=== PATIENT | female | born 1970 | race Caucasian/White ===

== ENCOUNTER → 2016-06-27 | Outpatient (REF) | payer OTHER ==
[~2016-06-27] MED LIST: FLEXERIL OR; IBUP400T OR; NEUR600T OR; VICO5TAB OR
[2016-06-27 18:04] LABS: MEAN CORPUSCULAR HEMOGLOBIN 31.2 pg (27.0-33.0); MEAN CORPUSCULAR HGB CONC 32.4 g/dl (32.0-36.5); MEAN CORPUSCULAR VOLUME 96.2 fl (80.0-96.0); RED CELL DISTRIBUTION WIDTH 12.8 % (11.5-14.5); WHITE BLOOD COUNT 6.2 K/mm3 (4.0-10.0)
[2016-06-27 18:12] LABS: ALBUMIN 3.6 GM/DL (3.2-5.2); ALBUMIN/GLOBULIN RATIO 1.06 (1.00-1.93); ALKALINE PHOSPHATASE 91 U/L (45-117); ALT/SGPT 32 U/L (12-78); ANION GAP 9 MEQ/L (8-16); AST/SGOT 19 U/L (15-37); BILIRUBIN,TOTAL 0.3 MG/DL (0.2-1.0); BLOOD UREA NITROGEN 12 MG/DL (7-18); CALCIUM LEVEL 8.5 MG/DL (8.5-10.1); CARBON DIOXIDE LEVEL 29 MEQ/L (21-32); CHLORIDE LEVEL 105 MEQ/L (98-107); CHOLESTEROL LEVEL 256 MG/DL (<200); CREATININE FOR GFR 0.74 MG/DL (0.55-1.02); GLOMERULAR FILTRATION RATE > 60.0 (>58); GLUCOSE, FASTING 97 MG/DL (70-105); POTASSIUM SERUM 4.4 MEQ/L (3.5-5.1); SODIUM LEVEL 143 MEQ/L (136-145); TRIGLYCERIDES LEVEL 197 MG/DL (<150)
== END ==
LOC: M SFHCLERA 11:38
PROVIDERS: ATTEND Physician Assistant
DX: R53.83 Other fatigue (principal); E78.2 Mixed hyperlipidemia

== ENCOUNTER → 2017-05-21 | Outpatient (REF) | payer OTHER | LOC: M SFHCWAGY 13:41 | DX: Z12.72 Encounter for screening for malignant neoplasm of vagina (principal) ==

== ENCOUNTER → 2017-05-21 | Outpatient (CLI) | payer OTHER | LOC: M WHC 12:41 | DX: Z12.31 Encounter for screening mammogram for malignant neoplasm of breast (principal) | CPT/HCPCS: 77067 ==

== ENCOUNTER 2017-07-04 19:46 | Observation (INO) | payer OTHER ==
[2017-07-04 20:43] LABS: BASO % 0.7 % (0.0-1.0); EOS # 0.1 10^3/uL (0.0-0.50); EOS % 1.5 % (0.0-3.0); HEMATOCRIT 33.2 % (36.0-47.0); HEMOGLOBIN 11.1 g/dl (12.0-16.0); IMMATURE GRANULOCYTE % 0.2 % (0-3.0); LYMPH # 1.7 10^3/uL (1.5-4.5); LYMPH % 27.7 % (24.0-44.0); MEAN CORPUSCULAR HEMOGLOBIN 31.1 pg (27.0-33.0); MEAN CORPUSCULAR HGB CONC 33.4 g/dl (32.0-36.5); MONO # 0.3 10^3/uL (0.0-0.8); MONO % 5.2 % (0.0-5.0); NEUTROPHILS % 64.7 % (36.0-66.0); PLATELET COUNT, AUTOMATED 196 10^3/uL (150-450); RED BLOOD COUNT 3.57 10^6/uL (4.00-5.40); RED CELL DISTRIBUTION WIDTH 12.2 % (11.5-14.5); WHITE BLOOD COUNT 6.1 10^3/uL (4.0-10.0)
[2017-07-04 20:46] LABS: BEDSIDE GLUCOSE 87 MG/DL (70-105)
[2017-07-04 20:59] LABS: ACETAMINOPHEN LEVEL < 2.0 UG/ML (10.0-30.0); ALBUMIN 3.5 GM/DL (3.2-5.2); ALBUMIN/GLOBULIN RATIO 1.17 (1.00-1.93); ALKALINE PHOSPHATASE 79 U/L (45-117); ALT/SGPT 17 U/L (12-78); ANION GAP 10 MEQ/L (8-16); AST/SGOT 15 U/L (7-37); BILIRUBIN,DIRECT < 0.1 MG/DL (0.0-0.2); BLOOD UREA NITROGEN 14 MG/DL (7-18); CALCIUM LEVEL 8.3 MG/DL (8.5-10.1); CARBON DIOXIDE LEVEL 25 MEQ/L (21-32); CHLORIDE LEVEL 108 MEQ/L (98-107); CPK CREATINE PHOSPHOKINASE 95 U/L (26-192); CREATININE FOR GFR 0.69 MG/DL (0.55-1.30); ETHYL ALCOHOL (ETHANOL) < 0.003 % (0.000-0.010); GLOMERULAR FILTRATION RATE > 60.0 (>58); GLUCOSE, FASTING 113 MG/DL (70-100); POTASSIUM SERUM 3.7 MEQ/L (3.5-5.1); SALICYLATE LEVEL < 1.7 MG/DL (5.0-30.0); SODIUM LEVEL 143 MEQ/L (136-145); TOTAL PROTEIN 6.5 GM/DL (6.4-8.2); TROPONIN I < 0.02 NG/ML (< 0.10)
[2017-07-04 21:11] LABS: BILIRUBIN,TOTAL 0.2 MG/DL (0.2-1.0); MB/CK RELATIVE INDEX 1.05 (< OR =4)
[2017-07-04] MEDS: METOCLOPRAMIDE INJ 10MG/2ML VIAL (J2765) IV (21:15)
[2017-07-04] MEDS: KETOROLAC 30 MG/ML VIAL (J1885) IV (21:15)
[2017-07-04] MEDS: NS 1,000 ML IV ×2 (21:15→23:16)
[2017-07-04] MEDS: diphenhydrAMINE INJ 50MG/ML VIAL (J1200) IV (21:15)
[2017-07-04 22:24] LABS: BEDSIDE GLUCOSE 105 MG/DL (70-105)
[2017-07-05 00:04] LABS: MAGNESIUM LEVEL 1.9 MG/DL (1.8-2.4); PHOSPHORUS LEVEL 1.4 MG/DL (2.5-4.9)
[2017-07-05] MEDS: NS 1,000 ML IV (01:29)
[2017-07-05] MEDS ORDERED: ONDANSETRON 4MG/2ML VIAL (J2405) IV (01:30)
[2017-07-05] MEDS: HEPARIN SOD (PORCINE) 5000 UNITS/ML VIAL SC (06:00)
[2017-07-05 06:21] LABS: BEDSIDE GLUCOSE 102 MG/DL (70-105)
[2017-07-05 06:42] LABS: C REACTIVE PROTEIN QUANTITATIV < 0.30 MG/DL (0.00-0.30)
[2017-07-05 06:44] LABS: ERYTHROCYTE SEDIMENTATION RATE 15 mm/hr (0-20)
[2017-07-05 09:44] LABS: BASO % 0.3 % (0.0-1.0); EOS # 0.1 10^3/uL (0.0-0.50); HEMATOCRIT 34.8 % (36.0-47.0); HEMOGLOBIN 11.7 g/dl (12.0-16.0); IMMATURE GRANULOCYTE % 0.2 % (0-3.0); LYMPH # 1.8 10^3/uL (1.5-4.5); LYMPH % 29.2 % (24.0-44.0); MEAN CORPUSCULAR HEMOGLOBIN 31.5 pg (27.0-33.0); MEAN CORPUSCULAR HGB CONC 33.6 g/dl (32.0-36.5); MEAN CORPUSCULAR VOLUME 93.8 fl (80.0-96.0); MONO # 0.4 10^3/uL (0.0-0.8); MONO % 6.5 % (0.0-5.0); NEUTROPHILS # 3.8 10^3/uL (1.8-7.7); NEUTROPHILS % 62.8 % (36.0-66.0); PLATELET COUNT, AUTOMATED 189 10^3/uL (150-450); RED BLOOD COUNT 3.71 10^6/uL (4.00-5.40); RED CELL DISTRIBUTION WIDTH 12.5 % (11.5-14.5)
[2017-07-05 09:47] LABS: ALBUMIN 3.2 GM/DL (3.2-5.2); ALBUMIN/GLOBULIN RATIO 1.03 (1.00-1.93); ALKALINE PHOSPHATASE 78 U/L (45-117); ALT/SGPT 18 U/L (12-78); ANION GAP 7 MEQ/L (8-16); AST/SGOT 13 U/L (7-37); BILIRUBIN,TOTAL 0.3 MG/DL (0.2-1.0); BLOOD UREA NITROGEN 9 MG/DL (7-18); CALCIUM LEVEL 8.3 MG/DL (8.5-10.1); CARBON DIOXIDE LEVEL 28 MEQ/L (21-32); CHLORIDE LEVEL 109 MEQ/L (98-107); CREATININE FOR GFR 0.65 MG/DL (0.55-1.30); GLOMERULAR FILTRATION RATE > 60.0 (>58); GLUCOSE, FASTING 96 MG/DL (70-100); MAGNESIUM LEVEL 1.9 MG/DL (1.8-2.4); POTASSIUM SERUM 3.8 MEQ/L (3.5-5.1); SODIUM LEVEL 144 MEQ/L (136-145); TOTAL PROTEIN 6.3 GM/DL (6.4-8.2)
== END 2017-07-05 13:00 | disposition home or self-care (01) ==
LOC: M ED INP 19:47 → M ED 19:46
DX: I95.1 Orthostatic hypotension (principal); R00.1 Bradycardia, unspecified; R42 Dizziness and giddiness; M79.7 Fibromyalgia; F32.9 Major depressive disorder, single episode, unspecified; J30.9 Allergic rhinitis, unspecified; G43.909 Migraine, unspecified, not intractable, without status migrainosus; R68.82 Decreased libido; N89.8 Other specified noninflammatory disorders of vagina; Z98.84 Bariatric surgery status; Z87.891 Personal history of nicotine dependence
CPT/HCPCS: J1200

== ENCOUNTER → 2017-07-19 | Outpatient (CLI) | payer OTHER ==
[2017-07-19 12:16] LABS: EOS # 0.1 10^3/uL (0.0-0.50); EOS % 3.5 % (0.0-3.0); HEMATOCRIT 37.4 % (36.0-47.0); HEMOGLOBIN 12.5 g/dl (12.0-15.5); LYMPH # 1.5 10^3/uL (1.5-4.5); LYMPH % 38.2 % (24.0-44.0); MEAN CORPUSCULAR HEMOGLOBIN 31.3 pg (27.0-33.0); MEAN CORPUSCULAR HGB CONC 33.4 g/dl (32.0-36.5); MEAN CORPUSCULAR VOLUME 93.7 fl (80.0-96.0); MONO # 0.2 10^3/uL (0.0-0.8); NEUTROPHILS % 51.3 % (36.0-66.0); PLATELET COUNT, AUTOMATED 229 10^3/uL (150-450); RED BLOOD COUNT 3.99 10^6/uL (4.00-5.40); RED CELL DISTRIBUTION WIDTH 12.5 % (11.5-14.5)
[2017-07-19 12:20] LABS: HEMATOCRIT 37.4 % (36.0-47.0)
[2017-07-19 12:33] LABS: TOTAL 25(OH) VITAMIN D 37.3 NG/ML (30.0-100.0)
[2017-07-19 12:34] LABS: VITAMIN B12 LEVEL > 2000 PG/ML (247-911)
[2017-07-19 12:37] LABS: ALBUMIN 3.9 GM/DL (3.2-5.2); ALBUMIN/GLOBULIN RATIO 1.18 (1.00-1.93); ALKALINE PHOSPHATASE 82 U/L (45-117); ALT/SGPT 27 U/L (12-78); ANION GAP 5 MEQ/L (8-16); AST/SGOT 20 U/L (7-37); BILIRUBIN,TOTAL 0.6 MG/DL (0.2-1.0); BLOOD UREA NITROGEN 14 MG/DL (7-18); CALCIUM LEVEL 9.3 MG/DL (8.5-10.1); CARBON DIOXIDE LEVEL 32 MEQ/L (21-32); CHLORIDE LEVEL 106 MEQ/L (98-107); FERRITIN 99 NG/ML (8-252); GLOMERULAR FILTRATION RATE > 60.0 (>58); GLUCOSE, FASTING 97 MG/DL (70-100); IRON (FE) 119 UG/DL (50-170); PHOSPHORUS LEVEL 3.7 MG/DL (2.5-4.9); POTASSIUM SERUM 3.8 MEQ/L (3.5-5.1); SODIUM LEVEL 143 MEQ/L (136-145); TOTAL IRON BINDING CAPACITY 322 UG/DL (250-450); TOTAL PROTEIN 7.2 GM/DL (6.4-8.2)
[2017-07-19 13:22] LABS: ESTIMATED AVERAGE GLUCOSE 114 MG/DL (60-110); HEMOGLOBIN A1c 5.6 %
[2017-07-19 14:15] LABS: PRETREATED FOLATE FOR RBCFOL 16.7 NG/ML; RBC FOLATE 937.7 NG/ML (280-791)
== END ==
LOC: M LRY 09:23
DX: K91.2 Postsurgical malabsorption, not elsewhere classified (principal); E55.9 Vitamin D deficiency, unspecified; Z98.84 Bariatric surgery status
CPT/HCPCS: 83550

== ENCOUNTER → 2018-11-06 | Outpatient (REF) | payer BC, OTHER ==
[~2018-11-06] MED LIST changes: +AMIT25TA PO; +CALC1TAB72 PO; +CETI10TA PO; +CYAN100049 PO; +LYRI200C PO; +SING10TA32 PO; +VITMTA PO; +ZOFR4TAB14 PO; +ZYRT10CA PO
== END ==
LOC: M SFHCPLAZ 10:08
PROVIDERS: ATTEND Dermatology
DX: D48.2 Neoplasm of uncertain behavior of peripheral nerves and autonomic nervous system (principal)

== ENCOUNTER 2019-10-10 08:31 | Emergency (ER) | payer BC, OTHER, SELFPAY ==
[~2019-10-10] VITALS: Ht 160 cm; Wt 77.7 kg
[2019-10-10] MEDS ORDERED: BACL10TA2 PO (08:38)
[2019-10-10] MEDS ORDERED: LIDOCAINE 2% MDV 20ML VIAL SC ONE (09:00)
[2019-10-10] MEDS ORDERED: BOOSTRIX/ADACEL VACCINE (DIPHTH/PERTUSS/ACELL/TETANUS) 0.5ML SYR IM ONE (09:30)
[2019-10-10 09:47] VITALS: BP 122/67
== END 2019-10-10 09:50 | disposition home or self-care (01) ==
LOC: M ED 08:31
DX: S61.221A Laceration with foreign body of left index finger without damage to nail, initial encounter (principal); Z88.0 Allergy status to penicillin; W45.8XXA Other foreign body or object entering through skin, initial encounter; Y93.89 Activity, other specified; Y99.8 Other external cause status; Y92.9 Unspecified place or not applicable; Z98.84 Bariatric surgery status; Z98.1 Arthrodesis status

== ENCOUNTER → 2021-01-18 | Outpatient (REF) | payer OTHER ==
[~2021-01-18] MED LIST changes: -AMIT25TA PO; +AMIT25TA17 PO; +BACL10TA2 PO; +MACR100C43 PO
== END ==
LOC: M SFHCLERA 15:42
PROVIDERS: ATTEND Nurse Practitioner Family
DX: J02.9 Acute pharyngitis, unspecified (principal)

== ENCOUNTER → 2021-05-04 | Outpatient (REF) | payer OTHER | LOC: M SFHCPLAZ 17:14 | PROVIDERS: ATTEND Physician Assistant | DX: J02.9 Acute pharyngitis, unspecified (principal); Z20.822 Contact with and (suspected) exposure to COVID-19 ==

== ENCOUNTER → 2023-03-13 | Outpatient (CLI) | payer BC ==
[~2023-03-13] MED LIST changes: -AMIT25TA17 PO; +AMIT25TA19 PO; +MONT-5 PO; -SING10TA32 PO
[2023-03-13 08:05] LABS: BASO % 1.4 % (0.0-1.0); EOS # 0.1 10^3/uL (0.0-0.5); EOS % 2.9 % (0.0-3.0); HEMATOCRIT 38.5 % (36.0-47.0); HEMOGLOBIN 12.8 g/dl (12.0-15.5); LYMPH % 35.9 % (24.0-44.0); MEAN CORPUSCULAR HEMOGLOBIN 32.2 pg (27.0-33.0); MEAN CORPUSCULAR HGB CONC 33.2 g/dl (32.0-36.5); MEAN CORPUSCULAR VOLUME 96.7 fl (80.0-96.0); MONO # 0.2 10^3/uL (0.0-0.8); MONO % 6.5 % (2.0-8.0); NEUTROPHILS # 1.5 10^3/uL (1.5-8.5); NEUTROPHILS % 52.9 % (36.0-66.0); PLATELET COUNT, AUTOMATED 226 10^3/uL (150-450); RED BLOOD COUNT 3.98 10^6/uL (4.00-5.40); WHITE BLOOD COUNT 2.8 10^3/uL (4.0-10.0)
[2023-03-13 08:35] LABS: HEMOGLOBIN A1c 5.2 % (4.0-6.0)
[2023-03-13 08:38] LABS: IRON (FE) 79 UG/DL (50-170)
[2023-03-13 08:39] LABS: PERCENT SATURATION 22.1 % (13.2-45.0); TOTAL IRON BINDING CAPACITY 357 UG/DL (250-425)
[2023-03-13 08:42] LABS: ALBUMIN 3.7 G/DL (3.2-5.2); ALKALINE PHOSPHATASE 93 U/L (46-116); ALT/SGPT 17 U/L (7.0-40); AST/SGOT 17 U/L (<34); BILIRUBIN,TOTAL 0.4 MG/DL (0.3-1.2); BLOOD UREA NITROGEN 12 MG/DL (9-23); CALCIUM LEVEL 8.9 MG/DL (8.5-10.1); CARBON DIOXIDE LEVEL 31 MMOL/L (20-31); CHLORIDE LEVEL 105 MMOL/L (98-107); CHOLESTEROL LEVEL 290 MG/DL (<200); CHOLESTEROL RISK RATIO 2.67 (<5); CREATININE FOR GFR 0.71 MG/DL (0.55-1.30); FERRITIN 24.2 NG/ML (7.3-270.7); FOLATE > 24.0 NG/ML (>5.4); FREE T4 1.07 NG/DL (0.89-1.76); GLOMERULAR FILTRATION RATE > 60.0 (>51); GLUCOSE, FASTING 91 MG/DL (60-100); HDL CHOLESTEROL 108.6 MG/DL (>40); LDL CHOLESTEROL 166.2 MG/DL (<100); NON-HDL-C 181.4 MG/DL; POTASSIUM SERUM 4.1 MMOL/L (3.5-5.1); SODIUM LEVEL 140 MMOL/L (136-145); THYROID STIMULATING HORMONE 1.479 uIU/ML (0.55-4.78); TOTAL PROTEIN 6.7 G/DL (5.7-8.2); TRIGLYCERIDES LEVEL 76 MG/DL (<150)
[2023-03-13 08:50] LABS: VITAMIN B12 LEVEL > 2000 PG/ML (211-911)
== END ==
LOC: M LAB 07:24
PROVIDERS: ATTEND Physician Assistant
DX: R22.1 Localized swelling, mass and lump, neck (principal); Z13.6 Encounter for screening for cardiovascular disorders; Z98.84 Bariatric surgery status

== ENCOUNTER → 2023-03-18 | Outpatient (CLI) | payer BC ==
[~2023-03-18] MED LIST changes: +ISOVUE-370 76% 100ML VIAL As Ordered ONE
== END ==
LOC: M RAD 07:47
PROVIDERS: ATTEND Physician Assistant
DX: R22.1 Localized swelling, mass and lump, neck (principal)
CPT/HCPCS: 70491; Q9967

== ENCOUNTER → 2023-05-03 | Outpatient (CLI) | payer BC ==
[~2023-05-03] MED LIST changes: -ISOVUE-370 76% 100ML VIAL As Ordered ONE
[2023-05-03 13:26] LABS: BASO % 1.4 % (0.0-1.0); EOS # 0.1 10^3/uL (0.0-0.5); EOS % 3.1 % (0.0-3.0); HEMATOCRIT 38.2 % (36.0-47.0); HEMOGLOBIN 12.2 g/dl (12.0-15.5); LYMPH # 1.2 10^3/uL (1.5-5.0); LYMPH % 40.8 % (24.0-44.0); MEAN CORPUSCULAR HEMOGLOBIN 31.7 pg (27.0-33.0); MEAN CORPUSCULAR HGB CONC 31.9 g/dl (32.0-36.5); MEAN CORPUSCULAR VOLUME 99.2 fl (80.0-96.0); MONO # 0.2 10^3/uL (0.0-0.8); MONO % 7.5 % (2.0-8.0); NEUTROPHILS # 1.4 10^3/uL (1.5-8.5); NEUTROPHILS % 47.2 % (36.0-66.0); PLATELET COUNT, AUTOMATED 214 10^3/uL (150-450); RED BLOOD COUNT 3.85 10^6/uL (4.00-5.40); WHITE BLOOD COUNT 2.9 10^3/uL (4.0-10.0)
[2023-05-03 13:44] LABS: ERYTHROCYTE SEDIMENTATION RATE 8 mm/hr (0-30)
[2023-05-03 13:49] LABS: URIC ACID 5.2 MG/DL (3.1-7.8)
[2023-05-03 13:51] LABS: C REACTIVE PROTEIN QUANTITATIV < 0.40 MG/DL (<1.0)
[2023-05-03 13:54] LABS: RHEUMATOID FACTOR QUANT < 3.5 IU/ML (<14)
[2023-05-03 14:19] LABS: HIV 1&2 SCREEN NEGATIVE (NEGATIVE)
[2023-05-03 14:27] LABS: HEPATITIS C VIRUS ABY INDEX 0.02 INDEX (<0.8)
[2023-05-03 14:28] LABS: HEPATITIS B CORE ANTIBODY IGM NEGATIVE (NEGATIVE)
[2023-05-03 15:18] LABS: APPEARANCE, URINE MANUAL HAZY (CLEAR); BILIRUBIN, URINE MANUAL NEGATIVE (NEGATIVE); COLOR, URINE MANUAL DK YELLOW (YELLOW); GLUCOSE, URINE (UA) MANUAL NEGATIVE (NEGATIVE); KETONE, URINE MANUAL NEGATIVE (NEGATIVE); LEUKOCYTE ESTERASE, URINE MAN POSITIVE (NEGATIVE); NITRITE, URINE MANUAL NEGATIVE (NEGATIVE); PROTEIN, URINE MANUAL 1+ mg/dL (NEGATIVE); UROBILINOGEN, URINE MANUAL NORMAL (NORMAL)
[2023-05-03 15:19] LABS: BLOOD URINE MANUAL POSITIVE (NEGATIVE)
[2023-05-03 15:31] LABS: CALCIUM OXALATE CRYSTALS,URINE MOD AMOUNT /hpf
[2023-05-03 15:32] LABS: AMORPHOUS SEDIMENT, URINE SMALL AMOUNT (NEGATIVE); BACTERIA, URINE SMALL AMOUNT
[2023-05-03 15:33] LABS: HYALINE CAST, URINE NONE SEEN /lpf (0-1); SQUAMOUS EPITHELIAL CELL URINE MOD AMOUNT /hpf (SMALL AMT)
== END ==
LOC: M WUC 09:12
PROVIDERS: ATTEND Physician Assistant
DX: M47.816 Spondylosis without myelopathy or radiculopathy, lumbar region (principal); M54.41 Lumbago with sciatica, right side; M25.551 Pain in right hip; D72.810 Lymphocytopenia

== ENCOUNTER 2023-07-08 07:48 | Emergency (ER) | payer BC ==
[~2023-07-08] VITALS: Ht 160 cm; Wt 81.9 kg
[2023-07-08] MEDS ORDERED: PANT40TA29 PO (08:10)
[2023-07-08] MEDS ORDERED: LEXA1TAB PO (08:10)
[2023-07-08] MEDS ORDERED: TIZA10TA PO (08:10)
[2023-07-08] MEDS ORDERED: SUMA100T2 PO (08:10)
[2023-07-08] MEDS: dexAMETHasone 20MG/5ML VIAL IV ONE (11:16)
[2023-07-08] MEDS: KETOROLAC 30 MG/ML 1ML VIAL IV ONE (11:17)
[2023-07-08] MEDS: NS 1,000 ML IV ONE (11:17)
[2023-07-08] MEDS: METOCLOPRAMIDE INJ 10MG/2ML VIAL IV ONE (11:17)
[2023-07-08] MEDS ORDERED: MULT-40 PO (11:54)
[2023-07-08 11:55] LABS: BASO # 0.1 10^3/uL (0.0-0.2); BASO % 1.3 % (0.0-1.0); EOS # 0.1 10^3/uL (0.0-0.5); EOS % 2.1 % (0.0-3.0); LYMPH # 1.5 10^3/uL (1.5-5.0); LYMPH % 37.6 % (24.0-44.0); MEAN CORPUSCULAR HEMOGLOBIN 30.9 pg (27.0-33.0); MEAN CORPUSCULAR HGB CONC 32.4 g/dl (32.0-36.5); MEAN CORPUSCULAR VOLUME 95.4 fl (80.0-96.0); MONO # 0.3 10^3/uL (0.0-0.8); MONO % 8.2 % (2.0-8.0); NEUTROPHILS % 50.5 % (36.0-66.0); PLATELET COUNT, AUTOMATED 204 10^3/uL (150-450); RED BLOOD COUNT 3.88 10^6/uL (4.00-5.40); WHITE BLOOD COUNT 3.9 10^3/uL (4.0-10.0)
[2023-07-08] MEDS ORDERED: HOME MED LIST COMPLETE! XX SCH (11:55)
[2023-07-08 12:13] LABS: BLOOD UREA NITROGEN 11 MG/DL (9-23); CALCIUM LEVEL 8.8 MG/DL (8.5-10.1); CARBON DIOXIDE LEVEL 31 MMOL/L (20-31); CHLORIDE LEVEL 105 MMOL/L (98-107); CREATININE FOR GFR 0.67 MG/DL (0.55-1.30); GLOMERULAR FILTRATION RATE > 60.0 (>51); GLUCOSE, FASTING 89 MG/DL (60-100); SODIUM LEVEL 141 MMOL/L (136-145)
[2023-07-08 12:19] LABS: ERYTHROCYTE SEDIMENTATION RATE 9 mm/hr (0-30)
[2023-07-08 13:08] VITALS: BP 141/82; TEMP 97.8; O2SAT 100
== END 2023-07-08 13:14 | disposition home or self-care (01) ==
LOC: M ED 07:48
DX: R51.9 Headache, unspecified (principal); D23.4 Other benign neoplasm of skin of scalp and neck; K21.9 Gastro-esophageal reflux disease without esophagitis; Z88.0 Allergy status to penicillin; Z88.8 Allergy status to other drugs, medicaments and biological substances; Z79.810 Long term (current) use of selective estrogen receptor modulators (SERMs); Z79.899 Other long term (current) drug therapy
CPT/HCPCS: 70450; 80048; 83735; 85025; 85652; 96361; 96374; 96375; 99284; J1100; J1885; J2765

== ENCOUNTER 2023-07-12 11:54 | Emergency (ER) | payer BC ==
[~2023-07-12] VITALS: Ht 160 cm; Wt 72.7 kg
[~2023-07-12 11:54] MED LIST changes: +LEXA1TAB PO; +MULT-40 PO; +PANT40TA29 PO; +SUMA100T2 PO; +TIZA10TA PO
[2023-07-12 12:39] LABS: BASO # 0.1 10^3/uL (0.0-0.2); BASO % 1.3 % (0.0-1.0); EOS # 0.1 10^3/uL (0.0-0.5); EOS % 1.8 % (0.0-3.0); HEMATOCRIT 38.5 % (36.0-47.0); HEMOGLOBIN 12.5 g/dl (12.0-15.5); LYMPH # 1.6 10^3/uL (1.5-5.0); LYMPH % 41.4 % (24.0-44.0); MEAN CORPUSCULAR HGB CONC 32.5 g/dl (32.0-36.5); MEAN CORPUSCULAR VOLUME 95.5 fl (80.0-96.0); MONO # 0.3 10^3/uL (0.0-0.8); MONO % 7.3 % (2.0-8.0); NEUTROPHILS # 1.9 10^3/uL (1.5-8.5); NEUTROPHILS % 48.2 % (36.0-66.0); PLATELET COUNT, AUTOMATED 219 10^3/uL (150-450); RED BLOOD COUNT 4.03 10^6/uL (4.00-5.40)
[2023-07-12 12:41] VITALS: BP 122/73
[2023-07-12] MEDS: NITROGLYCERIN 0.4MG SUBL TABLET SL PRN (12:41)
[2023-07-12] MEDS: ASPIRIN 81MG CHEW TABLET PO ONE (12:41)
[2023-07-12 12:52] LABS: INR 0.99; PARTIAL THROMBOPLASTIN TIME 26.6 SECONDS (24.8-34.2); PROTHROMBIN TIME 12.8 SECONDS (12.5-14.5)
[2023-07-12 13:25] LABS: BLOOD UREA NITROGEN 11 MG/DL (9-23); CALCIUM LEVEL 8.4 MG/DL (8.5-10.1); CARBON DIOXIDE LEVEL 29 MMOL/L (20-31); CHLORIDE LEVEL 106 MMOL/L (98-107); CK-MB VALUE MASS < 1.0 NG/ML (<3.6); CPK CREATINE PHOSPHOKINASE 102 U/L (34-145); CREATININE FOR GFR 0.72 MG/DL (0.55-1.30); GLOMERULAR FILTRATION RATE > 60.0 (>51); GLUCOSE, FASTING 75 MG/DL (60-100); MB/CK RELATIVE INDEX 0.98 (< OR =4); POTASSIUM SERUM 3.5 MMOL/L (3.5-5.1); SODIUM LEVEL 139 MMOL/L (136-145)
[2023-07-12 13:45] LABS: D-DIMER QUANT 0.31 ug/mL (<0.5)
[2023-07-12 14:06] LABS: CK-MB VALUE MASS < 1.0 NG/ML (<3.6)
[2023-07-12 14:08] LABS: CPK CREATINE PHOSPHOKINASE 100 U/L (34-145)
[2023-07-12 15:00] VITALS: BP 117/74; O2SAT 98
[2023-07-12 15:12] VITALS: TEMP 97.8
== END 2023-07-12 15:08 | disposition home or self-care (01) ==
LOC: M ED 11:54
DX: R07.9 Chest pain, unspecified (principal); K21.9 Gastro-esophageal reflux disease without esophagitis; F41.9 Anxiety disorder, unspecified; F32.9 Major depressive disorder, single episode, unspecified; Z88.8 Allergy status to other drugs, medicaments and biological substances; Z88.0 Allergy status to penicillin; Z79.810 Long term (current) use of selective estrogen receptor modulators (SERMs); Z79.899 Other long term (current) drug therapy

== ENCOUNTER 2024-03-05 10:59 | Emergency (ER) | payer BC ==
[~2024-03-05] VITALS: Ht 170.2 cm; Wt 78.9 kg
[2024-03-05 11:49] LABS: HEMOGLOBIN 12.6 g/dl (12.0-15.5); MEAN CORPUSCULAR HEMOGLOBIN 31.8 pg (27.0-33.0); MEAN CORPUSCULAR HGB CONC 33.2 g/dl (32.0-36.5); PLATELET COUNT, AUTOMATED 163 10^3/uL (150-450); RED BLOOD COUNT 3.96 10^6/uL (4.00-5.40); WHITE BLOOD COUNT 2.6 10^3/uL (4.0-10.0)
[2024-03-05 12:11] LABS: BLOOD UREA NITROGEN 9 MG/DL (9-23); CALCIUM LEVEL 8.8 MG/DL (8.5-10.1); CARBON DIOXIDE LEVEL 28 MMOL/L (20-31); CHLORIDE LEVEL 109 MMOL/L (98-107); CREATININE FOR GFR 0.69 MG/DL (0.55-1.30); GLOMERULAR FILTRATION RATE > 60.0 (>51); GLUCOSE, FASTING 85 MG/DL (60-100); POTASSIUM SERUM 3.3 MMOL/L (3.5-5.1); SODIUM LEVEL 145 MMOL/L (136-145)
[2024-03-05 12:29] LABS: BASO % 0.4 % (0.0-1.0); EOS % 1.5 % (0.0-3.0); LYMPH % 37.2 % (24.0-44.0); MONO # 0.3 10^3/uL (0.0-0.8); MONO % 11.5 % (2.0-8.0); NEUTROPHILS # 1.3 10^3/uL (1.5-8.5)
[2024-03-05 13:02] LABS: ATYPICAL LYMPH 8 % (0-5); EOSINOPHILS 2 % (0-3); LYMPHOCYTES 32 % (16-44); METAMYELOCYTES 2 % (0-0); MONOCYTES 14 % (0-5); NEUTROPHILS 38 % (28-66)
[2024-03-05 13:04] LABS: PLATELET ESTIMATE NORMAL (NORMAL)
[2024-03-05] MEDS: ONDANSETRON 4MG 2ML VIAL IV ONE (14:54)
[2024-03-05] MEDS: KETOROLAC 30 MG/ML 1ML VIAL IV ONE (14:54)
[2024-03-05] MEDS: diphenhydrAMINE 50MG/ML VIAL IV STA (14:54)
[2024-03-05] MEDS: NS 1,000 ML IV ONE (14:54)
[2024-03-05] MEDS: METOCLOPRAMIDE INJ 10MG/2ML VIAL IV ONE (15:55)
[2024-03-05 16:22] VITALS: BP 108/63; TEMP 98.2; O2SAT 98
[2024-03-05] MEDS: methylPREDNISolone 125MG 2ML VIAL IV ONE (16:22)
[2024-03-05] MEDS: diphenhydrAMINE 12.5MG/5ML ELIXIR UDC PO ONE (16:22)
[2024-03-05] MEDS ORDERED: ONDA-282 PO (16:31)
== END 2024-03-05 16:41 | disposition home or self-care (01) ==
LOC: M ED 10:59
DX: R51.9 Headache, unspecified (principal); D72.819 Decreased white blood cell count, unspecified; Z88.0 Allergy status to penicillin; Z88.8 Allergy status to other drugs, medicaments and biological substances; Z79.810 Long term (current) use of selective estrogen receptor modulators (SERMs); Z79.899 Other long term (current) drug therapy
CPT/HCPCS: 70450; 80048; 83605; 85025; 87486; 87581; 87633; 87798; 93005; 96361; 96374; 96375; 99284; J1200; J1885; J2405; J2765; J2919

== ENCOUNTER 2024-05-17 07:35 | Emergency (ER) | payer BC ==
[~2024-05-17] VITALS: Ht 160 cm; Wt 78.4 kg
[~2024-05-17 07:35] MED LIST changes: +ONDA-282 PO
[2024-05-17] MEDS: ACETAMINOPHEN 500 MG TAB PO ONE (08:46)
[2024-05-17] MEDS ORDERED: DOXY-441 PO (09:06)
[2024-05-17] MEDS ORDERED: FLON1SPR NARES (09:06)
[2024-05-17 09:12] VITALS: BP 134/74; TEMP 98; O2SAT 98
== END 2024-05-17 09:19 | disposition home or self-care (01) ==
LOC: M ED 07:35
DX: J01.80 Other acute sinusitis (principal); K02.9 Dental caries, unspecified; K21.9 Gastro-esophageal reflux disease without esophagitis; F41.9 Anxiety disorder, unspecified; Z88.0 Allergy status to penicillin; Z88.8 Allergy status to other drugs, medicaments and biological substances; Z79.2 Long term (current) use of antibiotics; Z79.899 Other long term (current) drug therapy; Z79.810 Long term (current) use of selective estrogen receptor modulators (SERMs)

== ENCOUNTER → 2024-10-26 | Outpatient (REF) | payer BC ==
[~2024-10-26] MED LIST changes: +DOXY-441 PO; +FLON1SPR NARES; +PERC5TAB12 PO
[2024-10-26 18:43] LABS: PLATELET COUNT, AUTOMATED 209 10^3/uL (150-450)
[2024-10-26 18:46] LABS: IRON (FE) 56 UG/DL (50-170)
[2024-10-26 18:47] LABS: PERCENT SATURATION 15.7 % (13.2-45.0)
[2024-10-26 18:51] LABS: ALT/SGPT 15 U/L (7.0-40); AST/SGOT 23 U/L (<34); CALCIUM LEVEL 8.4 MG/DL (8.5-10.1); CARBON DIOXIDE LEVEL 29 MMOL/L (20-31); CHLORIDE LEVEL 109 MMOL/L (98-107); CHOLESTEROL LEVEL 222 MG/DL (<200); CHOLESTEROL RISK RATIO 2.28 (<5); CREATININE FOR GFR 0.71 MG/DL (0.55-1.30); ESTIMATED AVERAGE GLUCOSE 97.0 MG/DL (60-110); GLOMERULAR FILTRATION RATE > 90.0 (>51); LDL CHOLESTEROL 115.1 MG/DL (<100); NON-HDL-C 124.7 MG/DL; POTASSIUM SERUM 4.3 MMOL/L (3.5-5.1); SODIUM LEVEL 148 MMOL/L (136-145); TRIGLYCERIDES LEVEL 48 MG/DL (<150)
== END ==
LOC: M SFHCLERA 07:18
DX: Z00.00 Encounter for general adult medical examination without abnormal findings (principal); R23.3 Spontaneous ecchymoses

== ENCOUNTER 2024-11-01 09:38 | Emergency (ER) | payer BC ==
[~2024-11-01] VITALS: Ht 160 cm; Wt 69.5 kg
[~2024-11-01 09:38] MED LIST changes: -PERC5TAB12 PO
[2024-11-01] MEDS ORDERED: PERC5TAB12 PO (13:31)
[2024-11-01 13:35] VITALS: BP 142/80; TEMP 98.4; O2SAT 98
== END 2024-11-01 14:10 | disposition home or self-care (01) ==
LOC: M ED 09:38
DX: S82.62XA Displaced fracture of lateral malleolus of left fibula, initial encounter for closed fracture (principal); Y92.019 Unspecified place in single-family (private) house as the place of occurrence of the external cause; Y93.9 Activity, unspecified; Y99.9 Unspecified external cause status; W19.XXXA Unspecified fall, initial encounter; Z88.0 Allergy status to penicillin; Z88.8 Allergy status to other drugs, medicaments and biological substances; Z79.2 Long term (current) use of antibiotics; Z79.899 Other long term (current) drug therapy; Z79.810 Long term (current) use of selective estrogen receptor modulators (SERMs)

== ENCOUNTER → 2024-12-11 | Outpatient (CLI) | payer BC ==
[~2024-12-11] MED LIST changes: +PERC5TAB12 PO
== END ==
LOC: M SOG 06:49
PROVIDERS: ATTEND Physician Assistant
DX: M25.571 Pain in right ankle and joints of right foot (principal)

== ENCOUNTER → 2025-02-11 | Outpatient (CLI) | payer BC | LOC: M SOG 16:08 | PROVIDERS: ATTEND Physician Assistant | DX: S82.65XA Nondisplaced fracture of lateral malleolus of left fibula, initial encounter for closed fracture (principal); Y93.9 Activity, unspecified; Y92.9 Unspecified place or not applicable ==

== ENCOUNTER → 2025-03-22 | Outpatient (CLI) | payer BC | LOC: M PLAIMG 08:00 | PROVIDERS: ATTEND Physician Assistant | DX: S82.65XD Nondisplaced fracture of lateral malleolus of left fibula, subsequent encounter for closed fracture with routine healing (principal) ==